=== PATIENT | male | born 1950 | race Caucasian/White ===

== ENCOUNTER → 2019-07-11 | Day surgery (SDC) | payer MEDICARE ==
[2019-07-10 11:51] LABS: BASOPHILS # (AUTO) 0.1 (0.0-0.1); BASOPHILS % 0.5 % (0.0-1.0); EOSINOPHILS # (AUTO) 0.1 (0.0-0.4); EOSINOPHILS % 0.7 % (0.0-6.0); HEMATOCRIT 30.1 % (38.2-49.6); HEMOGLOBIN 9.2 g/dL (14.0-18.0); LYMPHOCYTES # (AUTO) 1.6 (1.0-3.2); LYMPHOCYTES % 16.7 % (18.0-39.1); MEAN CORPUSCULAR HEMOGLOBIN 28.9 pg (28-32); MEAN CORPUSCULAR HGB CONC 30.6 g/dL (31-35); MEAN CORPUSCULAR VOLUME 94.7 fL (81-99); MONOCYTES # (AUTO) 0.6 (0.2-0.8); MONOCYTES % 5.8 % (4.4-11.3); NEUTROPHILS # (AUTO) 7.1 (2.1-6.9); NEUTROPHILS % 74.3 % (38.7-80.0); PLATELET COUNT 424 x10e3/uL (140-360); RED BLOOD COUNT 3.18 x10e6/uL (4.3-5.7); RED CELL DISTRIBUTION WIDTH 13.6 % (11.7-14.4)
[2019-07-10 12:10] LABS: ANION GAP 14.3 mmol/L (8-16); CREATININE, SERUM 1.7 mg/dL (0.72-1.25); POTASSIUM 4.3 mmol/L (3.5-5.1)
--- NOTE | 2019-07-10 12:26 | Diagnostic Imaging Report ---
EXAMINATION: CHEST 2 VIEWS INDICATION: Pre-operative COMPARISON: None FINDINGS: LINES/TUBES:None LUNGS:The lungs are well-inflated. No focal consolidation or pulmonary edema. Mild biapical pleural parenchymal thickening/scarring. PLEURA:No pleural effusion or pneumothorax. MEDIASTINUM:The cardiomediastinal silhouette appears normal in size and shape. Atherosclerotic calcifications of the thoracic aorta. BONES/SOFT TISSUES:No acute osseous injury. ABDOMEN:No free air under the diaphragm. IMPRESSION: No focal pneumonia or pulmonary edema. Signed by: Lea Cardona MD on 07/10/2019 12:23 PM
[~2019-07-11] MED LIST: AMIODARONE HCL200 MG PO; ATORVASTATIN CA20 MG PO; BACITRACIN 50,000 UNIT VIAL ONE; BUPIVACAINE HCL 0.5% INJ 30 ML VIAL INJ ONE; CLINDAMYCIN PHOS 900MG/ 50ML 50 ML IV ONE; CLOPIDOGREL75 MG PO; DEXAMETHASONE SOD PHOS INJ 4 MG/ML VIAL ONE; FENTANYL CITRATE/PF 100MCG/2 ML INJ ONE; GABAPENTIN300 MG PO; GLIMEPIRIDE2 MG PO; LIDOCAINE HCL 2% LOCAL INJ 5 ML SDV VIAL INJ ONE; LISINOPRIL10 MG PO; METOPROLOL TART50 MG PO; MIDAZOLAM HCL 2 MG/2 ML VIAL ONE; OMEPRAZOLE40 MG PO; PROPOFOL IV EMULSION 10 MG/ML 20 ML VIAL ONE
--- OUTSIDE RECORDS SUMMARY | 2019-07-11 05:31 | XMS REPORT ---
Author Author [facility] Address Unknown Phone Unavailable Care Team Providers [employer] Jointer Name Role Phone Antonieta RUIZ Unavailable Unavailable Payers Payer Name Policy Type Policy Number Effective Date Expiration Date Problems This patient has no known problems. Allergies, Adverse Reactions, Alerts Allergy Name Allergy Type Status Severity Reaction(s) Onset Date Inactive Date Treating Clinician Comments hydrocodone DA Active [place] 2016-05-23 00:00:00 Medications This patient has no known medications. Results Test Description Test Time Test Comments Text Results Atomic Results Result Comments CHEST 2 VIEWS 2019-07-10 12:22:00 [place] [address] Patient Name: SOHAIL ALEXANDER MR #: [id number] : 1950 Age/Sex: 68/M Req #: [id number] Adm Physician: Ordered by: Antonieta RUIZ DPM Report #: [id number] Location: OR Room/Bed: Procedure: [id number] DX/CHEST 2 VIEWS Exam Date: 07/10/19 Exam Time: 1150 REPORT STATUS: Signed EXAMINATION: CHEST 2 VIEWS INDICATION: Pre-operative COMPARISON: None FINDINGS: LINES/TUBES:None LUNGS:The lungs are well-inflated. No focal consolidation or pulmonary edema. Mild biapical pleural parenchymal thickening/scarring. PLEURA:No pleural effusion or pneumothorax. MEDIASTINUM:The cardiomediastinal silhouette appears normal in size and shape. Atherosclerotic calcifications of the thoracic aorta. BONES/SOFT TISSUES:No acute osseous injury. ABDOMEN:No free air under the diaphragm. IMPRESSION: No focal pneumonia or pulmonary edema. Signed by: Carlota Her MD on 07/10/2019 12:23 PM Dictated By: CARLOTA HER MD 1223 Transcribed By: OCTAVIA on 07/10/19 1223 COPY TO: Antonieta RUIZ DPM GLUBED 2019-07-07 13:02:00 GLUBED (test code=GLUBED) 243 mg/dL 74-106 Performed by certified cafeteria operator at [facility] [id number] 11:22:00* Test Item Value Reference Range Comments GLUBED (test code=GLUBED) 151 mg/dL 74-106 Performed by certified cafeteria operator at [facility] - MRI LOW EXT W/O CONT [id number] 09:26:00 FAX: Waylon Peñaloza [phone] [place]: St: ADM FAX: Janice Keyes [phone] FAX: Phil Paredes MD [phone] Name: BABAK ALEXANDER [facility] : 1950 Age/S: 68/M [address] Unit #: [id number] Loc: [id number] [place] [address] Phys: Janice Keyes DP Acct: [id number] Dis Date: Status: ADM IN [facility] #: [phone] Exam Date: 07/07/2019 0845 FAX #: [phone] Reason: RULE OUT OSTEOMYELITIS EXAMS: CPT CODE: [id number] MR [place] L[place] EXT W/[place] [address] HISTORY: Left lower limb cellulitis TECHNIQUE: Sagittal T1, sagittal STIR, axial T1, axial T2 fat-sat, coronal T2, and coronal STIR sequences of the left foot were acquired without contrast. COMPARISON: None FINDINGS: There is a wound in the soft tissues along the l ateral surface of the foot at the level of the metatarsal head. There is i ncreased T2 signal and decreased T1 signal of the underlying bone compatib le with osteomyelitis. There is also a fluid collection reyna g the dorsal surface of the foot overlying the interosseous space between the fourth and fifth metatarsals which may represent an abscess. There is also mildly increased T2 signal intensity in the distal shaft of the fourt h metatarsal. The plantar fascia and the flexor and extensor tendons of the foot appear to be intact. IMPRESSION: Soft tissue wound on the lateral surface of the foot with findings of osteomyelitis involving the distal fourth metatarsal shaft and the head of the fifth metatarsal. There also appears to be an abscess in the distal interosseous space between the fourth and fifth metatarsals. Location: [facility] at 0926 Reported and signed by: Frank Noguera MD PAGE 1 Signed Re port (CONTINUED) FAX: Waylon Peñaloza [place]: St: ADM FAX: Janice Keyes [phone] FAX : Phil Paredes MD [phone] Name: BABAK ALEXANDER [facility] : 1950 Age/S: 68/M [address] [facility] Unit #: [id number] Loc: [address] [place] [address] Phys: Janice Keyes DPM Acct: [id number] Dis Date: Status: ADM IN PHONE #: [phone] Exam Date: 07/0745 FAX #: [phone] Reason: RULE OUT OSTEOM YELITIS EXAMS: CPT CODE: [id number] MRI LOW EXT W/O CONT LT 737 18 <Continued> CC: Waylon Davis MD; Janice Keyes DPM; Phil Blancas Technologist: DREW QUIROSRT - MRI Trnscrd Date/Time/By: 07/07/2019 (925) : By: [email or web address] Orig Print D/T: S: 07/07/2019 (928) PAGE 2 Signed Report BASIC METABOLIC [id number] 05:15:00* Test Item Value Reference Range Comments SODIUM (test code=NA) 144 mmol/L 136-145 POTASSIUM (test code=K) 5.0 mmol/L 3.5-5.1 CHLORIDE (test code=CL) 113.0 mmol/L 98-107 CARBON DIOXIDE (test code=CO2) 24.0 mmol/L 21-32 ANION GAP (test code=GAP) 12.0 10-20 GLUCOSE (test code=GLU) 205 mg/dL 74-106 BLOOD UREA NITROGEN (test code=BUN) 25 mg/dL 7-18 GLOMERULAR FILTRATION RATE (test code=GFR) 38 mL/min >=60 Estimated GFR by using Modified MDRD formula.Chronic kidney disease is defined as either kidney damageor GFR <60 mL/min/1.73 m2 for >3 months. CREATININE (test code=CREAT) 1.80 mg/dL 0.7-1.3 BUN/CREATININE RATIO (test code=BUN/CREA) 13.9 10-20 CALCIUM (test code=CA) 8.7 mg/dL 8.5-10.1 BASIC METABOLIC [id number] 05:02:00* Test Item Value Reference Range Comments SODIUM (test code=NA) 144 mmol/L 136-145 POTASSIUM (test code=K) 5.0 mmol/L 3.5-5.1 CHLORIDE (test code=CL) 113.0 mmol/L 98-107 CARBON DIOXIDE (test code=CO2) mmol/L 21-32 ANION GAP (test code=GAP) 10-20 GLUCOSE (test code=GLU) mg/dL 74-106 BLOOD UREA NITROGEN (test code=BUN) mg/dL 7-18 GLOMERULAR FILTRATION RATE (test code=GFR) mL/min >=60 CREATININE (test code=CREAT) mg/dL 0.7-1.3 BUN/CREATININE RATIO (test code=BUN/CREA) 10-20 CALCIUM (test code=CA) mg/dL 8.5-10.1 [id number] 21:05:00* Test Item Value Reference Range Comments GLUBED (test code=GLUBED) 195 mg/dL 74-106 Performed by certified cafeteria operator at [facility] [id number] 16:57:00* Test Item Value Reference Range Comments GLUBED (test code=GLUBED) 175 mg/dL 74-106 Performed by certified cafeteria operator at [facility] [id number] 11:15:00* Test Item Value Reference Range Comments GLUBED (test code=GLUBED) 200 mg/dL 74-106 Performed by certified cafeteria operator at [facility] [id number] 07:23:00* Test Item Value Reference Range Comments GLUBED (test code=GLUBED) 138 mg/dL 74-106 Performed by certified cafeteria operator at [facility] CREATINE KINASE (CK)2019-07-06 05:36:00* Test Item Value Reference Range Comments CREATINE KINASE (CK) (test code=CK) 60 IUnit/L 26-208 BASIC METABOLIC [id number] 05:35:00* Test Item Value Reference Range Comments SODIUM (test code=NA) 142 mmol/L 136-145 POTASSIUM (test code=K) 5.7 mmol/L 3.5-5.1 CHLORIDE (test code=CL) 111.0 mmol/L 98-107 CARBON DIOXIDE (test code=CO2) 25.0 mmol/L 21-32 ANION GAP (test code=GAP) 11.7 10-20 GLUCOSE (test code=GLU) 160 mg/dL 74-106 BLOOD UREA NITROGEN (test code=BUN) 30 mg/dL 7-18 GLOMERULAR FILTRATION RATE (test code=GFR) 36 mL/min >=60 Estimated GFR by using Modified MDRD formula.Chronic kidney disease is defined as either kidney damageor GFR <60 mL/min/1.73 m2 for >3 months. CREATININE (test code=CREAT) 1.90 mg/dL 0.7-1.3 BUN/CREATININE RATIO (test code=BUN/CREA) 15.8 10-20 CALCIUM (test code=CA) 8.7 mg/dL 8.5-10.1 CBC W/AUTO [id number] 05:07:00* Test Item Value Reference Range Comments WHITE BLOOD CELL (test code=WBC) 8.4 K/mm3 4.5-12.5 RED BLOOD CELL (test code=RBC) 2.97 mill/mm3 4.0-5.8 HEMOGLOBIN (test code=HGB) 8.6 gram/dL 13.0-17.5 HEMATOCRIT (test code=HCT) 28.4 % 42.0-52.0 MEAN CELL VOLUME (test code=MCV) 95.6 fL 80-98 MEAN CELL HGB (test code=MCH) 29.0 picogram 27.0-33.0 MEAN CELL HGB CONCETRATION (test code=MCHC) 30.3 gram/dL 33.0-36.0 RED CELL DISTRIBUTION WIDTH (test code=RDW) 13.4 % 11.6-16.2 RED CELL DISTRIBUTION WIDTH SD (test code=RDW-SD) 46.9 fL 37.0-51.0 PLATELET COUNT (test code=PLT) 372 K/mm3 150-450 MEAN PLATELET VOLUME (test code=MPV) 9.8 fL 6.7-11.0 NEUTROPHIL % (test code=NT%) 73.0 % 39.0-69.0 IMMATURE GRANULOCYTE % (test code=IG%) 2.3 % 0.0-5.0 LYMPHOCYTE % (test code=LY%) 14.4 % 25.0-55.0 MONOCYTE % (test code=MO%) 6.6 % 0.0-10.0 EOSINOPHIL % (test code=EO%) 3.2 % 0.0-5.0 BASOPHIL % (test code=BA%) 0.5 % 0.0-1.0 NUCLEATED RBC % (test code=NRBC%) 0.0 % 0-0 NEUTROPHIL # (test code=NT#) 6.12 K/mm3 1.8-7.7 IMMATURE GRANULOCYTE # (test code=IG#) 0.19 x10 3/uL 0-0.03 LYMPHOCYTE # (test code=LY#) 1.21 K/mm3 1.0-5.0 MONOCYTE # (test code=MO#) 0.55 K/mm3 0-0.8 EOSINOPHIL # (test code=EO#) 0.27 K/mm3 0.0-0.5 BASOPHIL # (test code=BA#) 0.04 K/mm3 0.0-0.2 NUCLEATED RBC # (test code=NRBC#) 0.00 K/mm3 0.0-0.1 MANUAL DIFF REQUIRED (test code=MDIFF) NO [id number] 20:55:00* Test Item Value Reference Range Comments GLUBED (test code=GLUBED) 165 mg/dL 74-106 Performed by certified cafeteria operator at [facility] - US RETRO [id number] 16:57:00 Name: BABAK ALEXANDER [facility] : 1950 Age/S: 68 / M [address] Unit #: [id number] Loc: [place] [address] Phys: Waylon Davis MD Acct: [id number] Dis Date: Status: ADM IN PHONE #: [phone] Exam Date: 07/05/2019 1607 FAX #: [phone] Reason: ELEVATED KIDNEY FUNCTION EXAMS: CPT CODE: [id number] US RETRO LTD 84060 REASON FOR EXAM: ELEVATED KIDNEY FUNCTION EXAM ORDER DATE: 07/05/2019 2:22 PM Attending M.D.: Waylon Davis MD PROCEDURE: - US RETRO LTD Comparison: No relevant priors FINDINGS: Right kidney: parenchyma echogenicity: Normal echogenicity size: 10.1 x 4.8 x 5.0 cm. stones: none cysts/masses: none hydronephrosis: none Left kidney: parenchyma echogenicity: Normal echogenicity size: 11.3 x 6.1 x 5.1 cm. stones: none cysts/masses: none hydronephrosis: none Urinary Bladder: Ureteral jets: Not distinctly visualized Intraluminal masses/debris: None Wall thickness: Normal Outpouching: None IMPRESSION: Sonographically unremarkable kidneys. Location: [facility] at 1657 Reported and signed by: Frank Noguera MD PAGE 1 Signed Report (CONTINUED) Name: BABAK ALEXANDER [facility] : 1950 Age/S: 68 / M [address] Unit #: [id number] Loc: [place] [address] Phys: Waylon Davis MD Acct: [id number] Dis Date: Status: ADM IN PHONE #: [phone] Exam Date: 07/05/2019 1607 FAX #: [phone] Reason: ELEVATED KIDNEY FUNCTION EXAMS: CPT CODE: [id number] RETRO LTD 32158 <Continued> CC: Waylon Davis MD; Phil Blancas Technologist: TIMOTHY VACA Trnscb Date/Time: 07/05/2019 (1656) [email or web address] Orig Print D/T: S: 07/05/2019 (1700) Probe: PAGE 2 Signed Report [id number] 16:21:00* Test Item Value Reference Range Comments GLUBED (test code=GLUBED) 146 mg/dL 74-106 Performed by certified cafeteria operator at [facility] [id number] 11:04:00* Test Item Value Reference Range Comments GLUBED (test code=GLUBED) 207 mg/dL 74-106 Performed by certified cafeteria operator at [facility] [id number] 08:25:00* Test Item Value Reference Range Comments GLUBED (test code=GLUBED) 152 mg/dL 74-106 Performed by certified cafeteria operator at [facility] [id number] 21:35:00* Test Item Value Reference Range Comments GLUBED (test code=GLUBED) 196 mg/dL 74-106 Performed by certified cafeteria operator at [facility] - XR FOOT 3 + V [id number] 21:06:00 FAX: Waylon Peñaloza [phone] [place]: B St: ADM FAX: Phil Paredes MD [phone] Name: BABAK ALEXANDER [facility] : 1950 Age/S: 68/M [address] [facility] Unit #: [id number] Loc: [address] [place] [address] Phys: Waylon Davis MD Acct: [id number] Dis Date: Status: ADM IN PHONE #: [phone] Exam Date: 07/04/20192044 FAX #: [phone] Reason: OSTEOMYELTIS EXAMS: CPT CODE: [id number] XR FOOT 3 + [place] [address] EXAM: Left foot, 3 views; INFORMATION: Cellulitis and osteomyelitis; FINDINGS: There is cortical erosion and i rregular localized osteoporosis involving the base of the proximal phalanx of the fifth toe. The remainder of the foot skeleton is intact. Soft tissue swelling; No radiopaque foreign bodies. IMPRESSION: Osteomyelitis of the base of the proximal phalanx of the fifth toe. Location code: [facility] at 210 Reported and signed by: Bennett Jansen M.D. CC: Waylon Davis MD; Phil Blancas hnologist: PAUL CUELLO; BLAKE COLLINS, (R) Trnscrd Date/T justin/By: 07/04/2019 (2105) : By: Patience.GRW Orig Print D/T: S: 0 (2108) PAGE 1 Signed Report SED [id number] 21:05:00* Test Item Value Reference Range Comments SED RATE (test code=SEDW) 58 mm/hr 0-15 WINTROBE METHOD: NORMAL RANGE FOR MEN: 0-9 MM/HR WOMAN: 0-20 MM/HR SED RATE [id number] 21:04:00* Test Item Value Reference Range Comments SED RATE WESTERGREN (test code=SEDW) 58 mm/hr 0-15 - XR CHEST 1 [id number] 21:03:00 FAX: Waylon Peñaloza [phone] [place]: St: [facility] FAX: Phil Paredes MD [phone] Name: BABAK ALEXANDER [facility] : 1950 Age/S: 68/M [address] Unit #: [id number] Loc: [address] [place] [address] Phys: Waylon Davis MD Acct: [id number] Dis Date: Status: ADM IN PHONE #: [phone] Exam Date: 07/04/20192049 FAX #: [phone] Reason: POSSIBLE SURGERY EXAMS: CPT CODE: [id number] XR CHEST 1 V 99969 EXAM: Chest x-ray, one view; INFORMATION: Cellulitis, left lower extremity; preop; FINDINGS: Lungs are clear; no infiltrates, no edema; no effusions; calcifications of the aortic arch; otherwise, unremarkable cardiac mediastinal silhouette. IMPRESSION: 1. No evidence of active cardiopulmonary disease. 2. No significant change compared with a study from March 28, 2016. Location code: [facility] at 2102 Reported and signed by: Bennett Jansen M.D. CC: Waylon Davis MD; Phil Blancas Technologist: PAUL CUELLO; BLAKE COLLINS, RT(R) Trnscrd Date/Time/By: (2102) : By: Arnoldo Orig Print D/T: S: 07/04/2019 (2105) PAGE 1 Signed Report BASIC METABOLIC [id number] 18:18:00* Test Item Value Reference Range Comments SODIUM (test code=NA) 140 mmol/L 136-145 POTASSIUM (test code=K) 5.5 mmol/L 3.5-5.1 CHLORIDE (test code=CL) 110.0 mmol/L 98-107 CARBON DIOXIDE (test code=CO2) 25.0 mmol/L 21-32 ANION GAP (test code=GAP) 10.5 10-20 GLUCOSE (test code=GLU) 210 mg/dL 74-106 BLOOD UREA NITROGEN (test code=BUN) 39 mg/dL 7-18 GLOMERULAR FILTRATION RATE (test code=GFR) 30 mL/min >=60 Estimated GFR by using Modified MDRD formula.Chronic kidney disease is defined as either kidney damageor GFR <60 mL/min/1.73 m2 for >3 months. CREATININE (test code=CREAT) 2.20 mg/dL 0.7-1.3 BUN/CREATININE RATIO (test code=BUN/CREA) 17.7 10-20 CALCIUM (test code=CA) 8.5 mg/dL 8.5-10.1 C REACTIVE [id number] 18:18:00* Test Item Value Reference Range Comments C REACTIVE PROTEIN (test code=CRP) 10.50 mg/dL 0-0.3 CBC W/AUTO [id number] 17:08:00* Test Item Value Reference Range Comments WHITE BLOOD CELL (test code=WBC) 8.6 K/mm3 4.5-12.5 RED BLOOD CELL (test code=RBC) 2.80 mill/mm3 4.0-5.8 HEMOGLOBIN (test code=HGB) 8.0 gram/dL 13.0-17.5 HEMATOCRIT (test code=HCT) 26.5 % 42.0-52.0 MEAN CELL VOLUME (test code=MCV) 94.6 fL 80-98 MEAN CELL HGB (test code=MCH) 28.6 picogram 27.0-33.0 MEAN CELL HGB CONCETRATION (test code=MCHC) 30.2 gram/dL 33.0-36.0 RED CELL DISTRIBUTION WIDTH (test code=RDW) 13.3 % 11.6-16.2 RED CELL DISTRIBUTION WIDTH SD (test code=RDW-SD) 46.8 fL 37.0-51.0 PLATELET COUNT (test code=PLT) 316 K/mm3 150-450 MEAN PLATELET VOLUME (test code=MPV) 10.3 fL 6.7-11.0 NEUTROPHIL % (test code=NT%) 67.3 % 39.0-69.0 IMMATURE GRANULOCYTE % (test code=IG%) 2.0 % 0.0-5.0 LYMPHOCYTE % (test code=LY%) 16.9 % 25.0-55.0 MONOCYTE % (test code=MO%) 11.4 % 0.0-10.0 EOSINOPHIL % (test code=EO%) 1.9 % 0.0-5.0 BASOPHIL % (test code=BA%) 0.5 % 0.0-1.0 NUCLEATED RBC % (test code=NRBC%) 0.0 % 0-0 NEUTROPHIL # (test code=NT#) 5.80 K/mm3 1.8-7.7 IMMATURE GRANULOCYTE # (test code=IG#) 0.17 x10 3/uL 0-0.03 LYMPHOCYTE # (test code=LY#) 1.45 K/mm3 1.0-5.0 MONOCYTE # (test code=MO#) 0.98 K/mm3 0-0.8 EOSINOPHIL # (test code=EO#) 0.16 K/mm3 0.0-0.5 BASOPHIL # (test code=BA#) 0.04 K/mm3 0.0-0.2 NUCLEATED RBC # (test code=NRBC#) 0.00 K/mm3 0.0-0.1 MANUAL DIFF REQUIRED (test code=MDIFF) NO [id number] 17:05:00* Test Item Value Reference Range Comments GLUBED (test code=GLUBED) 223 mg/dL 74-106 Performed by certified cafeteria operator at [facility]
[2019-07-11 08:45] VITALS: BP 167/89
--- NOTE | 2019-07-11 16:25 | Operative Report ---
DATE OF PROCEDURE: 07/11/2019 SURGEON: Janice Keyes DPM PREOPERATIVE DIAGNOSIS: Left 4th and 5th metatarsals osteomyelitis. POSTOPERATIVE DIAGNOSIS: Left 4th and 5th metatarsals osteomyelitis. PLANNED PROCEDURE: 1. Left 5th partial ray amputation. 2. Left 4th partial ray amputation. HOME CARE MANAGER: Janice Keyes DPM. ANESTHESIA: IV sedation with a block consisting of 20 mL of 0.5% Marcaine plain. HEMOSTASIS: Esmarch tourniquet applied for approximately 30 minutes. MATERIALS: 3-0 nylon. ESTIMATED BLOOD LOSS: Less than 10 mL. PATHOLOGY: Anaerobic and aerobic cultures, partial 4th and 5th ray sent for gross specimen. PROCEDURE NOTE: The patient was seen in the preoperative waiting room, where the correct procedure and site were identified. The patient was brought into the operating room and placed on the operating table in the supine position. IV sedation was initiated at this time. Local anesthesia was achieved to the site using 20 mL of 0.5% Marcaine plain. The left foot ankle leg was scrubbed, prepped, and draped in the usual aseptic manner and Esmarch tourniquet was placed to the left ankle for approximately 20 minutes. Attention was directed to the distal lateral aspect of the patient's left foot, where a large necrotic ulceration with probe to bone is noted at the lateral aspect of the 5th metatarsal head. At this time, the decision was made to proceed with a partial 5th ray amputation. Utilizing a #15 blade, 2 converging semi-elliptical incisions were made over the digit of the 5th metatarsophalangeal joint extending down the lateral aspect of the 5th metatarsal, excising the ulcer along to the base of the 5th metatarsal. All necrotic and devitalized tissue were removed. There was noted to be malodor purulent drainage within the 5th metatarsal joint. At this time, utilizing a sagittal saw, the 5th metatarsal shaft was resected at the midshaft level and digit was disarticulated as well. These were passed off to the back table. All necrotic and devitalized tissue were removed and the dissection was carried to the level of the 4th metatarsophalangeal joint, where there was noted to be a large amount of necrotic tissue as well as a secondary abscess. The decision was made to proceed with a partial 4th ray amputation. Utilizing the same converging semielliptical incision from the 5th toe was carried to the level of the 4th metatarsophalangeal joint and the digit was disarticulated, passed off the back table. Next, utilizing a sagittal saw, the 4th metatarsal shaft was resected and passed off to the back table. The wound was then debrided of all necrotic and devitalized tissue. Next, utilizing a Pulsavac, the incision was copiously irrigated with sterile saline and mixed with bacitracin. The wound edges were prepped for closure by removing all dog-ears and debulking fat. The incision site was then reapproximated utilizing simple interrupted sutures with 3-0 nylon. The patient tolerated the procedure and anesthesia well. The patient was transferred to the postoperative recovery unit with vital signs stable and vascular status intact. The patient was monitored there for a short period time performing sent home with the following written and oral instructions. 1. Keep the dressing clean, dry, and intact. 2. The patient is to remain nonweightbearing to the left lower extremity to avoid any ambulation until being seen in the office. 3. The patient is given the office number should contact us if any problems arise. Dictated by Janice Keyes DPM S ADITI Chang (Charley)/MODL /[id number]
== END | disposition home or self-care (01) ==
LOC: OR 05:28
PROVIDERS: ATTEND Podiatrist Foot & Ankle Surgery
DX: M86.071 Acute hematogenous osteomyelitis, right ankle and foot (principal); E11.9 Type 2 diabetes mellitus without complications; K21.9 Gastro-esophageal reflux disease without esophagitis; I48.91 Unspecified atrial fibrillation; I25.10 Atherosclerotic heart disease of native coronary artery without angina pectoris; I25.2 Old myocardial infarction; I10 Essential (primary) hypertension; E78.5 Hyperlipidemia, unspecified; Z79.84 Long term (current) use of oral hypoglycemic drugs; Z95.5 Presence of coronary angioplasty implant and graft; Z01.810 Encounter for preprocedural cardiovascular examination; Z01.812 Encounter for preprocedural laboratory examination; Z01.811 Encounter for preprocedural respiratory examination
CPT/HCPCS: 28810 ×2; 36415 ×2; 71046; 80048; 82948; 85025; 87071; 87075; 87186; 87205; 88305; 88311; 93005; J2001; J2250; J2704; J3010; 88304; J1100